=== PATIENT | female | born 1990 | race Two or more races ===

== ENCOUNTER 2016-08-10 19:36 | Emergency (ER) | payer OTHER ==
[~2016-08-10] VITALS: Ht 162.6 cm; Wt 72.0 kg
[~2016-08-10 19:36] MED LIST: BENADRYL25 MG PO; BIRTH CONTROL; FLONASE16 G1 BOTH NARES; MICROGESTIN FE1 EACH PO; MUCUS ER600 MG PO; NAPROSYN500 MG PO; NAPROXEN500 MG PO; PHENERGAN-CODE120 ML PO; ROBITUSSIN DM118 ML PO; ROBITUSSIN NIG118 ML PO; TESSALON PERLE100 MG PO; ZITHROMAX Z-PA250 MG PO; ZOFRAN ODT4 MG PO
[2016-08-10 20:35] LABS: ADD MIUA? YES; BILIRUBIN NEGATIVE; BLOOD NEGATIVE; COLOR YELLOW ((YELLOW)); GLUCOSE (STRIP) NEGATIVE; KETONES NEGATIVE; LEUKOCYTES NEGATIVE; NITRITE NEGATIVE; PROTEIN (STRIP) 30; SPECIFIC GRAVITY 1.028 (1.000-1.030)
[2016-08-10 20:42] LABS: HEMATOCRIT 33.3 % (36.0-46.0); MCH 30.5 PG (29.0-34.0); MCHC 33.6 G/DL (30.0-36.0); MCV 90.7 FL (83-99); MEAN PLAT.VOLUME 9.6 uM^3 (9.5-12.4); PLATELET COUNT 219 K/uL (156-360); RBC DIS.WIDTH-CV 12.7 % (11.8-14.6); RBC DIS.WIDTH-SD 42.1 % (39-53); RED BLOOD COUNT 3.67 M/uL (3.80-5.20); WHITE BLOOD COUNT 8.5 K/uL (4.1-10.2)
[2016-08-10 20:51] LABS: CHLORIDE 106 mEq/L (99-109); POTASSIUM 4.1 mEq/L (3.7-5.4); SODIUM 136 mEq/L (136-147)
[2016-08-10 20:53] LABS: GLUCOSE 84 mg/dL (70-99)
[2016-08-10 20:54] LABS: EPITHELIAL CELLS 1+ /HPF; MUCUS 3+ /LPF; RED BLOOD CELLS 0-5 /HPF (0-5); WHITE BLOOD CELLS 0-5 /HPF (0-5)
[2016-08-10 20:55] LABS: BACTERIA 1+ /HPF; CALCIUM OXALATE CRYSTALS 2+ /HPF; CASTS NONE SEEN /LPF; CRYSTALS PRESENT; UCUL ADDED? NO
[2016-08-10 20:55] LABS: ANION GAP 8 MEQ/L (2-14)
[2016-08-10 20:57] LABS: GFR ESTIMATE (CALCULATED) > 59 mL/min/
[2016-08-10 20:58] LABS: UREA NITROGEN (BUN) 7 mg/dL (9-23)
[2016-08-10 21:12] VITALS: BP 117/71
== END 2016-08-10 21:16 | disposition home or self-care (01) ==
LOC: EME 19:36
PROVIDERS: Physician Assistant
DX: O26.892 Other specified pregnancy related conditions, second trimester (principal); R10.30 Lower abdominal pain, unspecified; Z3A.14 14 weeks gestation of pregnancy; F17.200 Nicotine dependence, unspecified, uncomplicated
CPT/HCPCS: 80048; 81003; 85027; 99281; 99285

== ENCOUNTER → 2016-09-05 | Emergency (ER) | payer OTHER ==
[~2016-09-05] VITALS: Ht 165.1 cm; Wt 73.6 kg
[2016-09-05 09:43] LABS: HEMATOCRIT 34.5 % (36.0-46.0); MCH 30.8 PG (29.0-34.0); MCHC 33.6 G/DL (30.0-36.0); MCV 91.5 FL (83-99); MEAN PLAT.VOLUME 9.5 uM^3 (9.5-12.4); PLATELET COUNT 236 K/uL (156-360); RBC DIS.WIDTH-CV 12.4 % (11.8-14.6); RBC DIS.WIDTH-SD 41.5 % (39-53); RED BLOOD COUNT 3.77 M/uL (3.80-5.20); WHITE BLOOD COUNT 8.8 K/uL (4.1-10.2)
[2016-09-05 10:15] LABS: ANION GAP 11 MEQ/L (2-14); CHLORIDE 106 MEQ/L (99-109); GFR ESTIMATE (CALCULATED) > 59 mL/min/; GLUCOSE 88 mg/dL (70-99); POTASSIUM 3.8 MEQ/L (3.7-5.4); SAMPLE HEMOLYSIS CHECK 0; SAMPLE ICTERIC CHECK 0; SAMPLE LIPEMIA CHECK 0; SODIUM 137 MEQ/L (136-147); UREA NITROGEN (BUN) 5 mg/dL (9-23)
[2016-09-05 10:59] LABS: ADD MIUA? YES; BILIRUBIN NEGATIVE; BLOOD NEGATIVE; COLOR YELLOW ((YELLOW)); GLUCOSE (STRIP) NEGATIVE; KETONES NEGATIVE; LEUKOCYTES TRACE; NITRITE NEGATIVE; PROTEIN (STRIP) NEGATIVE; SPECIFIC GRAVITY 1.015 (1.000-1.030)
[2016-09-05 11:24] LABS: QUANTITATIVE HCG 13881.6 MIU/ML
[2016-09-05 11:36] LABS: BACTERIA RARE /HPF; EPITHELIAL CELLS 1+ /HPF; MUCUS 2+ /LPF; RED BLOOD CELLS 0-5 /HPF (0-5); UCUL ADDED? NO; WHITE BLOOD CELLS 0-5 /HPF (0-5)
[2016-09-05 14:16] VITALS: BP 95/56
== END | disposition home or self-care (01) ==
LOC: EME 09:15
DX: O21.0 Mild hyperemesis gravidarum (principal); O99.332 Smoking (tobacco) complicating pregnancy, second trimester; F17.200 Nicotine dependence, unspecified, uncomplicated; Z3A.20 20 weeks gestation of pregnancy; Z88.0 Allergy status to penicillin; Z88.1 Allergy status to other antibiotic agents
CPT/HCPCS: 80048; 81003; 84702; 85027; 99281; 99285; J2405; J7030

== ENCOUNTER 2016-10-26 18:21 | Emergency (ER) | payer OTHER ==
[~2016-10-26] VITALS: Ht 165.1 cm; Wt 77.4 kg
[2016-10-26] MEDS ORDERED: PRENATAL TABLE1 EAC3 PO (18:47)
[2016-10-26] MEDS ORDERED: LEXAPRO10 MG PO (18:47)
[2016-10-26 20:06] LABS: HEMATOCRIT 32.7 % (36.0-46.0); MCH 31.2 PG (29.0-34.0); MCHC 33.9 G/DL (30.0-36.0); MCV 91.9 FL (83-99); MEAN PLAT.VOLUME 9.7 uM^3 (9.5-12.4); PLATELET COUNT 248 K/uL (156-360); RBC DIS.WIDTH-CV 12.3 % (11.8-14.6); RBC DIS.WIDTH-SD 41.5 % (39-53); RED BLOOD COUNT 3.56 M/uL (3.80-5.20); WHITE BLOOD COUNT 8.8 K/uL (4.1-10.2)
[2016-10-26 20:15] LABS: CHLORIDE 110 mEq/L (99-109); POTASSIUM 3.9 mEq/L (3.7-5.4); SODIUM 138 mEq/L (136-147)
[2016-10-26 20:18] LABS: GLUCOSE 83 mg/dL (70-99)
[2016-10-26 20:19] LABS: ANION GAP 10 MEQ/L (2-14)
[2016-10-26 20:20] LABS: TOTAL BILIRUBIN 0.3 mg/dL (0.0-1.0)
[2016-10-26 20:21] LABS: ALKALINE PHOSPHATASE 64 IU/L (3-129); GFR ESTIMATE (CALCULATED) > 59 mL/min/
[2016-10-26 20:22] LABS: UREA NITROGEN (BUN) 3 mg/dL (9-23)
[2016-10-26 20:32] LABS: ADD MIUA? YES; BILIRUBIN NEGATIVE; BLOOD NEGATIVE; COLOR YELLOW ((YELLOW)); GLUCOSE (STRIP) NEGATIVE; KETONES NEGATIVE; LEUKOCYTES SMALL; NITRITE NEGATIVE; PROTEIN (STRIP) NEGATIVE; SPECIFIC GRAVITY 1.011 (1.000-1.030)
[2016-10-26 20:48] LABS: QUANTITATIVE HCG 16157.1 MIU/ML
[2016-10-26 21:01] LABS: BACTERIA 2+ /HPF; EPITHELIAL CELLS 4+ /HPF; MUCUS NONE SEEN /LPF; RED BLOOD CELLS 0-5 /HPF (0-5); UCUL ADDED? YES; WHITE BLOOD CELLS 0-5 /HPF (0-5)
[2016-10-27 00:16] VITALS: BP 105/57
== END 2016-10-27 00:17 | disposition home or self-care (01) ==
LOC: EME 18:21 → EDOF 22:40 → ENRESERV 22:44 → CANRESERV 22:44 → ENRESERV 22:51 → CANRESERV 22:51
DX: O99.282 Endocrine, nutritional and metabolic diseases complicating pregnancy, second trimester (principal); E86.0 Dehydration; O21.9 Vomiting of pregnancy, unspecified; R19.7 Diarrhea, unspecified; R51 Headache; O99.332 Smoking (tobacco) complicating pregnancy, second trimester; Z3A.26 26 weeks gestation of pregnancy; F17.200 Nicotine dependence, unspecified, uncomplicated
CPT/HCPCS: 80053; 81003; 84702; 85027; 87077; 87086; 87186; 99281; 99284; J7030

== ENCOUNTER 2017-01-07 21:07 | Outpatient (CLI) | payer OTHER ==
[~2017-01-07] VITALS: Ht 165.1 cm; Wt 84.4 kg
[~2017-01-07 21:07] MED LIST changes: +LEXAPRO10 MG PO; +PRENATAL TABLE1 EAC3 PO
[2017-01-07 21:24] VITALS: BP 118/71
[2017-01-07] MEDS ORDERED: LEXAPRO10 MG PO (21:33)
[2017-01-07] MEDS ORDERED: PRENATAL TABLE1 EAC3 PO (21:34)
[2017-01-07 23:08] LABS: ADD MIUA? NO; BILIRUBIN NEGATIVE; BLOOD NEGATIVE; COLOR YELLOW ((YELLOW)); GLUCOSE (STRIP) NEGATIVE; KETONES NEGATIVE; LEUKOCYTES NEGATIVE; NITRITE NEGATIVE; PROTEIN (STRIP) NEGATIVE; SPECIFIC GRAVITY 1.009 (1.000-1.030); UCUL ADDED? NO
[2017-01-07 23:21] LABS: AMPHETAMINE NEGATIVE (500 ng/mL); BARBITURATES NEGATIVE (200 ng/mL); BENZODIAZEPINES NEGATIVE (150 ng/mL); COCAINE NEGATIVE (150 ng/mL); INTERNAL CONTROLS VALID? YES; METHADONE NEGATIVE (200 ng/mL); METHAMPHETAMINE NEGATIVE (500 ng/mL); OPIATES (MORPHINE) NEGATIVE (100 ng/mL); OXYCODONE NEGATIVE (100 ng/mL); PHENCYCLIDINE NEGATIVE (25 ng/mL); PROPOXYPHENE NEGATIVE (300 ng/mL); THC CANNABINOIDS NEGATIVE (50 ng/mL); TRICYCLIC ANTIDEPRESSANTS NEGATIVE (300 ng/mL)
== END 2017-01-07 23:05 | disposition home or self-care (01) ==
LOC: LDRP-OP → 2WEST 21:08 → LDRP-OP 03-05 14:32
PROVIDERS: Advanced Practice Midwife
DX: O26.893 Other specified pregnancy related conditions, third trimester (principal); O99.343 Other mental disorders complicating pregnancy, third trimester; Z3A.36 36 weeks gestation of pregnancy; F41.8 Other specified anxiety disorders; F32.9 Major depressive disorder, single episode, unspecified
CPT/HCPCS: 59025; 81003; 87086; G0378

== ENCOUNTER 2017-01-16 14:44 | Inpatient (IN) | payer OTHER ==
[2017-01-16] VITALS (9 sets, daily range): BP systolic 111–133; BP diastolic 61–80
[~2017-01-16] VITALS: Ht 165.1 cm; Wt 83.0 kg
[2017-01-17 07:11] LABS: EOSINOPHIL (%) 0.4 % (0-5); EOSINOPHIL COUNT 0.1 K/uL (0-0.3); HEMATOCRIT 31.8 % (36.0-46.0); IMMATURE GRANULOCYTE (%) 0.4 % (0.0-0.7); IMMATURE GRANULOCYTE COUNT 0.1 K/uL; INSTRUMENT ABS NEUTROPHIL CT 10.6 K/uL; LYMPHOCYTE COUNT 1.9 K/uL (1.0-2.8); MCH 29.1 PG (29.0-34.0); MCHC 32.4 G/DL (30.0-36.0); MCV 89.8 FL (83-99); MEAN PLAT.VOLUME 10.4 uM^3 (9.5-12.4); MONOCYTE (%) 7.1 % (3-12); NEUTROPHIL (%) 77.7 % (45-76); NEUTROPHIL COUNT 10.6 K/uL (1.8-6.4); PLATELET COUNT 274 K/uL (156-360); RBC DIS.WIDTH-CV 13.7 % (11.8-14.6); RBC DIS.WIDTH-SD 44.6 % (39-53); RED BLOOD COUNT 3.54 M/uL (3.80-5.20); WHITE BLOOD COUNT 13.7 K/uL (4.1-10.2)
[2017-01-17 07:30] VITALS: BP 102/60
[2017-01-17 15:08] VITALS: BP 113/59
[2017-01-17 23:07] VITALS: BP 108/55
[2017-01-18 07:21] VITALS: BP 110/68
== END 2017-01-18 13:50 | disposition home or self-care (01) | DRG 775 ==
LOC: LDRP-OP 14:44 → 2WEST 14:45 → LDRP-OP 03-05 23:43
PROVIDERS: Advanced Practice Midwife
PROC: 10E0XZZ Delivery of Products of Conception, External Approach (ICD-10-PCS; principal; 2017-01-16)
DX: O70.0 First degree perineal laceration during delivery (principal); O69.82X0 Labor and delivery complicated by other cord entanglement, without compression, not applicable or unspecified; O99.89 Other specified diseases and conditions complicating pregnancy, childbirth and the puerperium; M10.9 Gout, unspecified; O99.344 Other mental disorders complicating childbirth; F32.9 Major depressive disorder, single episode, unspecified; F41.9 Anxiety disorder, unspecified; O99.334 Smoking (tobacco) complicating childbirth; F17.210 Nicotine dependence, cigarettes, uncomplicated; Z3A.37 37 weeks gestation of pregnancy; Z37.0 Single live birth
CPT/HCPCS: 85025; J1050; J7120